=== PATIENT | male | born 1985 | race Hispanic/Latino ===

== ENCOUNTER 2018-03-02 19:24 | Emergency (ER) | payer OTHER ==
[2018-03-02 19:47] VITALS: TEMP 97.8; BMI 28.2
--- NOTE | 2018-03-02 20:28 | C.PDOC ---
History Of Present Illness 33 year old male presents to the ER with a complaint of right elbow pain and swelling after he hit his elbow on a fence today. Patient is s/p elbow surgery on 12/21/17. Denies weakness or numbness. Time Seen by Provider: 03/02/18 19:45 Chief Complaint (Nursing): Upper Extremity Problem/Injury History Per: Patient History/Exam Limitations: no limitations Onset/Duration Of Symptoms: Hrs Current Symptoms Are (Timing): Still Present Exacerbating Factor(s): Movement Recent travel outside of the [place]: No Past Medical History Reviewed: Historical Data, Nursing Documentation, Vital Signs Vital Signs: Last Vital Signs Temp 97.8 F 03/02/18 19:41 Pulse 79 03/02/18 20:57 Resp 18 03/02/18 20:57 BP 110/65 03/02/18 20:57 Pulse Ox 96 03/02/18 21:45 Family History: States: Unknown Family Hx - Social History Hx Alcohol Use: No Hx Substance Use: No Review Of Systems Musculoskeletal: Positive for: Arm Pain Neurological: Negative for: Weakness, Numbness Physical Exam - Physical Exam Appears: Non-toxic Skin: Normal Color, Warm, Dry Head: Atraumatic, Normacephalic Eye(s): bilateral: Normal Inspection Extremity: Capillary Refill (<2 seconds), Other (Moderate swelling and tenderness to right elbow, right elbow able to extend to 120 degrees and flex to 45 degrees) Pulses: Left Radial: Normal, Right Radial: Normal Neurological/Psych: Oriented x3, Normal Speech, Normal Motor, Normal Sensation ED Course And Treatment O2 Sat by Pulse Oximetry: 96 (Room air) Pulse Ox Interpretation: Normal Medical Decision Making Medical Decision Making: Right elbow x-ray ordered. Motrin administered for pain. Disposition - Disposition Disposition: HOME/ ROUTINE Disposition Time: 21:37 Condition: GOOD Additional Instructions: Difficult to say if the avulsion fracture is old vs new. Follow up with your Orthopedist in 2 days without fail. 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 - Scribe Statement The provider has reviewed the documentation as recorded by the Scribe Lalo Altamirano All medical record entries made by the Scribe were at my direction and personally dictated by me. I have reviewed the chart and agree that the record accurately reflects my personal performance of the history, physical exam, medical decision making, and the department course for this patient. I have also personally directed, reviewed, and agree with the discharge instructions and disposition.
[2018-03-02 20:57] VITALS: BP 110/65; PULSE 79; RESP 18
[2018-03-02 21:46] VITALS: O2SAT 96
--- NOTE | 2018-03-03 10:31 | RAD ---
PROCEDURE: Right elbow 03/02/2018 HISTORY: Elbow injury COMPARISON: No prior study available for comparison FINDINGS: BONES: ORIF with fixation plate at attached to the dorsal aspect proximal ulna. There is a fracture of the olecranon which is displaced and distracted proximally which could probably represents an acute fracture superimposed on chronic injury . Significant dorsal soft tissue swelling likely in part due to swelling of the bursa/bursitis. Joint effusion present Degenerative osteoarthritis right elbow. IMPRESSION: ORIF with fixation plate attached to the dorsal aspect proximal ulna. There is a fracture of the olecranon which is displaced and distracted proximally and probably represents an acute fracture superimposed on chronic injury. Significant dorsal soft tissue swelling with swelling of the bursa likely representing a concomitant bursitis. Joint effusion present. Degenerative osteoarthritis.
== END 2018-03-02 21:54 | disposition home or self-care (01) ==
LOC: C.ER 19:24
DX: S52.021A Displaced fracture of olecranon process without intraarticular extension of right ulna, initial encounter for closed fracture (principal); W22.8XXA Striking against or struck by other objects, initial encounter; Y92.9 Unspecified place or not applicable